=== PATIENT | female | born 1985 | race Asian ===

== ENCOUNTER → 2016-10-31 | Outpatient (CLI) | payer OTHER ==
[~2016-10-31] MED LIST: GADAVIST IV PRN
--- NOTE | 2016-10-31 16:56 | DIAGNOSTIC IMAGING REPORT ---
CERVICAL SPINE MRI HISTORY: R20.2 [id number] Muscle [id number] TECHNIQUE: Multiplanar multisequence MRI of the cervical spine was performed without the use of contrast. COMPARISON STUDY: None. FINDINGS: The posterior fossa is unremarkable. Normal cervical spinal cord. No fracture or subluxation. Disc spaces are preserved. Prevertebral soft tissues and the C1-C2 interval are intact. No disc herniations. C2-C3: No significant central canal or neural foraminal narrowing. C3-C4: No significant central canal or neural foraminal narrowing. C4-C5: No significant central canal or neural foraminal narrowing. C5-C6: No significant central canal or neural foraminal narrowing. C6-C7: No significant central canal or neural foraminal narrowing. C7-T1: No significant central canal or neural foraminal narrowing. IMPRESSION: Normal cervical spine MRI. Electronically signed by: Marcelo Villalta M.D. 10/31/2016 4:55 PM Dictated Date/Time: 10/31/2016 4:50 PM
--- NOTE | 2016-10-31 17:23 | DIAGNOSTIC IMAGING REPORT ---
Brain MRI WITH AND WITHOUT CONTRAST HISTORY: R20.2 [id number] Muscle [id number] TECHNIQUE: Multiplanar multisequence MRI of the brain was performed both before and after the intravenous administration of contrast. COMPARISON STUDY: None. FINDINGS: There are no areas of restricted diffusion to suggest acute infarction. The midline structures are intact. The paranasal sinuses are clear. The mastoid air cells are clear. The ventricles and sulci are within normal limits for age. There is no mass, hematoma, midline shift. The major vascular flow-voids at the skull base are well maintained. Postcontrast sequences show no areas of abnormal enhancement. There are total of 4 punctate T2 hyperintense nonspecific foci seen within the subcortical white matter of the bilateral frontal lobes. These are best seen on the coronal FLAIR sequences. Tiny linear focus of enhancement within the left frontal lobe inferiorly is consistent with a small developmental venous anomaly. This is considered to be a normal variant. IMPRESSION: 1. No acute intracranial abnormality. 2. A few punctate foci of T2 hyperintensity within the subcortical white matter of the bilateral frontal lobes. This is nonspecific but could be seen in the setting of Lyme disease or early microvascular ischemic change. Multiple sclerosis or vasculitis could also have a similar appearance but are considered less likely. Consider 3-6 month brain MRI follow-up if the patient symptoms continue to progress. Electronically signed by: Marcelo Villalta M.D. 10/31/2016 5:22 PM Dictated Date/Time: 10/31/2016 5:02 PM
== END | disposition home or self-care (01) ==
LOC: C.MRI 15:31
PROVIDERS: ATTEND Physician Assistant
DX: M62.81 Muscle weakness (generalized) (principal); R20.2 Paresthesia of skin; R90.89 Other abnormal findings on diagnostic imaging of central nervous system

== ENCOUNTER → 2017-05-05 | Outpatient (CLI) | payer OTHER ==
--- NOTE | 2017-05-05 09:59 | DIAGNOSTIC IMAGING REPORT ---
BRAIN COMBO FOR MS CLINICAL HISTORY: 31 years-old Female presenting with ABNORMAL MRI, concern for Lyme disease versus early small vessel ischemic change versus multiple sclerosis versus vasculitis. TECHNIQUE: Multisequence, multiplanar MR imaging of the brain was performed before and after the administration of intravenous contrast. IV contrast: 5.5 mL of Gadavist. COMPARISON: 10/31/2016. FINDINGS: Ventricles and sulci normal in size. Upper convexity of the pituitary gland, which measures 7 mm in thickness, normal for a female patient of this age. Approximately 5 punctate T2/FLAIR hyperintense foci scattered throughout the subcortical white matter of the bilateral cerebral hemispheres. Allowing for the 3-D FLAIR sequence on the current exam, these foci appear unchanged from prior. No abnormal enhancement or restricted diffusion of these foci. No mass effect or midline shift. No restricted diffusion to suggest acute ischemia. No hemorrhage. No extra-axial fluid collection. T2 skull base flow voids preserved. No abnormal parenchymal enhancement. Bone marrow signal intensity within the calvarium within normal limits. IMPRESSION: 1. Nonspecific few scattered foci of abnormal signal intensity in the subcortical white matter. This is nonspecific and can be seen in the setting of chronic migraines among other etiologies. No abnormal enhancement or restricted diffusion to suggest active disease. Electronically signed by: Adalid Adams M.D. 05/05/2017 9:58 AM Dictated Date/Time: 05/05/2017 9:46 AM
== END | disposition home or self-care (01) ==
LOC: C.MRIBC 08:44
PROVIDERS: ATTEND Physician Assistant
DX: R93.8 Abnormal findings on diagnostic imaging of other specified body structures (principal); R90.89 Other abnormal findings on diagnostic imaging of central nervous system

== ENCOUNTER → 2017-10-27 | Outpatient (CLI) | payer OTHER ==
--- NOTE | 2017-10-27 15:05 | DIAGNOSTIC IMAGING REPORT ---
CT SCAN OF THE ABDOMEN AND PELVIS WITHOUT IV CONTRAST CLINICAL HISTORY: Flank pain. COMPARISON STUDY: No priors. TECHNIQUE: CT scan of the abdomen and pelvis is performed from the lung bases to the proximal femora. Images are reviewed in the axial, sagittal, and coronal planes. IV contrast was not administered for this examination. A dose lowering technique was utilized adhering to the principles of ALARA. CT DOSE: 404.18 mGycm FINDINGS: Lung bases: The heart is normal in size and without pericardial effusion. The lung bases are clear. Liver: The unenhanced liver is normal in size, contour, and attenuation. There is no intrahepatic biliary ductal dilatation. Gallbladder: Contracted. Spleen: Normal in size and attenuation. Pancreas: Unremarkable. Adrenal glands: Unremarkable. Kidneys: The unenhanced kidneys are normal in size and without hydronephrosis. There are no renal calculi identified. There is no evidence of contour deforming renal mass lesion. Abdominal vasculature: The abdominal aorta is normal in course and caliber. Bowel: The small bowel and colon are normal in course and caliber. The appendix is well-visualized and normal. Peritoneum: There is no intraperitoneal free air or abdominal ascites. There is a small fat-containing umbilical hernia. Lymphadenopathy: None. Pelvic viscera: The bladder, uterus, and adnexa are normal as imaged. There are bilateral ovarian follicles. Skeletal structures: No lytic or blastic lesions are seen. There is a hemitransitional left lumbosacral segment. IMPRESSION: There are no acute infectious or inflammatory findings in the abdomen or pelvis. Electronically signed by: Reed Corral M.D. 10/27/2017 3:04 PM Dictated Date/Time: 10/27/2017 3:01 PM
== END | disposition home or self-care (01) ==
LOC: C.CTS 14:11
PROVIDERS: ATTEND Physician Assistant
DX: N28.82 Megaloureter (principal)